=== PATIENT | male | born 2000 | race Caucasian/White ===

== ENCOUNTER 2024-03-15 11:28 | Inpatient (IN) | payer BC ==
[2024-03-15 11:57] VITALS: BMI 25.7
[2024-03-15] MEDS ORDERED: MAG HYDROX/AL HYDROX/SIMETH 30 ML UNIT-DOSE CUP PO PRN (12:06)
[2024-03-15] MEDS ORDERED: BENZOCAINE/MENTHOL (CHLORASEPTIC ) LOZENGE MM PRN (12:06)
[2024-03-15] MEDS ORDERED: IBUPROFEN 400 MG TABLET (FP) PO PRN (12:06)
[2024-03-15] MEDS ORDERED: P-EPHED 60MG/TRIPROLIDI 2.5MG TABLET PO PRN (12:06)
[2024-03-15] MEDS ORDERED: LOPERAMIDE HCL 2 MG CAPSULE PO PRN (12:06)
[2024-03-15] MEDS ORDERED: BENZONATATE 200 MG CAPSULE PO PRN (12:06)
[2024-03-15] MEDS ORDERED: IBUPROFEN 600 MG TABLET (FP) PO PRN (12:06)
[2024-03-15] MEDS ORDERED: MAGNESIUM HYDROX 2400MG/30ML ORAL SUSPENSION 30 ML CUP PO PRN (12:06)
[2024-03-15] MEDS ORDERED: NALOXONE (NARCAN) HCL 4 MG/0.1 ML SPRAY NS PRN (12:06)
[2024-03-15] MEDS ORDERED: BISMUTH SUBSALICYLATE 524 MG/30 ML PO PRN (12:06)
[2024-03-15] MEDS ORDERED: guaiFENesin 600 MG TABLET.ER (FP) PO PRN (12:06)
[2024-03-15] MEDS ORDERED: METHOCARBAMOL 500 MG TABLET PO PRN (12:06)
[2024-03-15] MEDS ORDERED: POLYETHYLENE GLYCOL (HEALTHYLAX) 3350 17 GM PACKET PO PRN (12:06)
[2024-03-15] MEDS ORDERED: DICYCLOMINE HCL 10 MG CAPSULE PO PRN (12:06)
[2024-03-15] MEDS ORDERED: diazePAM 5 MG TABLET ONE (13:03)
[2024-03-15] MEDS ORDERED: levETIRAcetam 500 MG TABLET (FP) PO ONE (13:04)
[2024-03-15] MEDS: levETIRAcetam 500 MG TABLET (FP) PO SCH (13:12)
[2024-03-15] MEDS: diazePAM 5 MG TABLET PO ONE (13:12)
[2024-03-15] MEDS: diazePAM 5 MG TABLET PO SCH (17:33)
[2024-03-15] MEDS: BUPRENORPHINE/NALOXONE 8 MG/2 MG FILM PACKET SL SCH (21:42)
[2024-03-15] MEDS ORDERED: BUPRENORPHINE/NALOXONE 8 MG/2 MG FILM PACKET SL SCH (22:00)
[2024-03-15] MEDS: THIAMINE 100 MG TABLET PO SCH (22:28)
[2024-03-15] MEDS: MELATONIN 5 MG TABLETS PO SCH (22:28)
[2024-03-16] MEDS: NICOTINE POLACRILEX 2 MG GUM BUC PRN (06:10)
[2024-03-16 09:23] LABS: HEMATOCRIT 42.6 % (35.4-49); HEMOGLOBIN 14.8 GM/dL (11.7-16.9); MCH 29.2 pg (25.7-33.7); MCHC 34.9 g/dl (32.0-35.9); MEAN CELL VOLUME 83.6 fl (80-96); MEAN PLT VOLUME 7.3 fl (7.5-11.1); PLATELET COUNT 249 10^3/uL (134-434); POTASSIUM 3.9 mmol/L (3.5-5.1); RBC 5.09 M/mm3 (4.00-5.60); RDW 13.2 % (11.9-15.9); WHITE BLOOD COUNT 6.3 K/mm3 (4.0-10.0)
[2024-03-16 09:26] LABS: CALCIUM 9.5 mg/dL (8.5-10.1)
[2024-03-16 09:34] LABS: ALBUMIN 4.1 g/dl (3.4-5.0)
[2024-03-16 09:35] LABS: BLOOD UREA NITROGEN 11.9 mg/dL (7-18)
[2024-03-16 09:39] LABS: BILIRUBIN,TOTAL 0.8 mg/dL (0.2-1)
[2024-03-16] MEDS: PRENATAL VITAMINS W/ FOLIC ACID TABLET (FP) PO SCH (09:39)
[2024-03-16 09:44] LABS: TOT PROT 7.3 g/dl (6.4-8.2)
[2024-03-16 09:45] LABS: CREATININE 0.9 mg/dL (0.55-1.3)
[2024-03-16] MEDS: ONDANSETRON *ODT* 4 MG TABLET SL PRN (10:14)
[2024-03-16] MEDS: NICOTINE POLACRILEX 2 MG LOZENGE BC PRN (10:34)
[2024-03-16] MEDS: hydrOXYzine PAMOATE 25 MG CAPSULE (FP) PO PRN (13:36)
[2024-03-16] MEDS: diazePAM 5 MG TABLET PO PRN (13:36)
[2024-03-17] MEDS: diazePAM 5 MG TABLET PO SCH (05:26)
[2024-03-18] MEDS: diazePAM 5 MG TABLET PO SCH (05:25)
[2024-03-18] MEDS: ACETAMINOPHEN 325 MG TABLET (FP) PO PRN (18:31)
[2024-03-18] MEDS: diazePAM 5 MG TABLET PO ONE (22:02)
[2024-03-18] MEDS: GABAPENTIN 100 MG CAPSULE PO SCH (22:04)
[2024-03-19] MEDS: diazePAM 5 MG TABLET PO ONE (05:30)
[2024-03-19] MEDS: NALOXONE (NYS OPIOID OVERDOSE PROGRAM) 4 MG/0.1 ML SPRAY NS SCH (08:25)
[2024-03-19 09:28] VITALS: BP 139/74; PULSE 89; RESP 18; TEMP 97.7
== END 2024-03-19 10:22 | disposition home or self-care (01) | DRG 773 ==
LOC: YASAS 11:28 → Y3N 12:53
PROVIDERS: ADMIT Allergy & Immunology; ATTEND Allergy & Immunology
PROC: HZ2ZZZZ Detoxification Services for Substance Abuse Treatment (ICD-10-PCS; principal; 2024-03-15)
DX: F10.230 Alcohol dependence with withdrawal, uncomplicated (principal); F11.20 Opioid dependence, uncomplicated; F17.290 Nicotine dependence, other tobacco product, uncomplicated; F32.A Depression, unspecified; F41.9 Anxiety disorder, unspecified; G47.00 Insomnia, unspecified
CPT/HCPCS: 36415; 80053; 80305; 80307; 85027; 86780; 93005; 93010; Q0162